=== PATIENT | male | born 1970 | race Caucasian/White ===

== ENCOUNTER → 2016-05-06 | Outpatient (CLI) | payer OTHER ==
[2016-05-06 12:37] LABS: BASOPHIL# 0.1 X10e3 (0-0.3); BASOPHIL% 1.1 % (0-2.5); EOSINOPHIL# 0.1 X10e3 (0-0.7); HEMATOCRIT 50.3 % (38.0-50.0); HEMOGLOBIN 17.5 gm/dL (13.0-16.0); LYMPHOCYTE# 1.6 X10e3 (1.0-3.5); LYMPHOCYTE% 23.1 % (17.0-45.0); MEAN CELL VOLUME 94.4 FL (83-96); MEAN CORPUSCULAR HEMOGLOBIN 32.8 PG (28-34); MEAN CORPUSCULAR HGB CONC 34.7 g/dL (30-36); MEAN PLATELET VOLUME 9.3 FL (6.5-11.5); MONOCYTE# 0.6 X10e3 (0-1.0); MONOCYTE% 9.2 % (3.0-12.0); NEUTROPHIL# 4.4 X10e3 (1.5-7.1); NEUTROPHIL% 65.6 % (40-75); PLATELET COUNT 173 X10e3 (140-420); RED BLOOD COUNT 5.32 X10e (3.90-5.60); WHITE BLOOD COUNT 6.7 X10e3 (4.0-10.5)
[2016-05-06 12:41] LABS: DIFF IND NO
[2016-05-06 13:05] LABS: URINE APPEARANCE CLEAR; URINE BILIRUBIN NEG (NEG); URINE BLOOD NEG (NEG); URINE COLOR YELLOW; URINE GLUCOSE NEG (NEG); URINE KETONE NEG (NEG); URINE LEUKOCYTE ESTERASE NEG (NEG); URINE NITRATE NEG (NEG); URINE PROTEIN NEG (NEG); URINE UROBILINOGEN 0.2 MG/DL (NEG)
[2016-05-06 13:16] LABS: URINE SOURCE VOID
[2016-05-06 13:18] LABS: CULTURE INDICATED? NO
[2016-05-06 13:20] LABS: ALBUMIN SERUM 5.1 g/dL (3.5-5.0); ALKALINE PHOSPHATASE 62 U/L (32-92); ALT (SGPT) 59 U/L (10-40); AST (SGOT) 40 U/L (10-42); BILIRUBIN,TOTAL 0.9 mg/dL (0.2-2.0); BLOOD UREA NITROGEN 18 mg/dL (9-23); CALCIUM SERUM 10.1 mg/dL (8.4-10.2); CARBON DIOXIDE 31 mmol/L (22-31); CHLORIDE 104 mmol/L (100-111); CHOLESTEROL 179 mg/dL (0-200); CREATININE SERUM 1.2 mg/dL (0.6-1.4); GLOM FILT RATE Estimated ABOVE60 mL/min (>60); GLUCOSE FASTING 99 mg/dL (70-110); HDL CHOLESTEROL 38 mg/dL (29-75); LDL CHOLESTEROL 105 mg/dL (-130); LDL/HDL RATIO 3 RATIO (0-4); PROTEIN TOTAL SERUM 8.1 g/dL (6.0-8.3); SODIUM 143 mmol/L (135-145); TRIGLYCERIDES 182 mg/dL (10-160)
[2016-05-06 13:25] LABS: THYROID STIMULATING HORMONE 1.51 uIU/ml (0.34-5.60)
[2016-05-06 13:32] LABS: FREE THYROXIN (T4) 0.78 ng/dL (0.58-1.64)
[2016-05-09 01:33] LABS: HA AB IGM (HEPPAN) Nonreactive (Nonreactive); HB CORE AB IGM (HEPPAN) Nonreactive (Nonreactive); HB S AG (HEPPAN) Nonreactive (Nonreactive); HEP C AB (HEPPAN) Nonreactive (Nonreactive); HEP C AB SIGNAL TO CUTOFF 0.03 ratio (<1.00)
== END | disposition home or self-care (01) ==
LOC: CLAB 11:06
PROVIDERS: General Practice
DX: R53.83 Other fatigue (principal); R53.81 Other malaise; R68.89 Other general symptoms and signs; E55.9 Vitamin D deficiency, unspecified; D64.9 Anemia, unspecified; Z79.899 Other long term (current) drug therapy
CPT/HCPCS: 36415; 80053; 80061; 80074; 81003; 82306; 82607; 82728; 82746; 84439; 84443; 85025; 86592; 87806